=== PATIENT | female | born 1995 | race African-American/Black ===

== ENCOUNTER 2021-01-23 19:53 | Emergency (ER) | payer MEDICAID, OTHER ==
[~2021-01-23] VITALS: Ht 167.6 cm; Wt 65.8 kg
[2021-01-23] MEDS ORDERED: ONDANSETRON ODT 4 MG TAB PO ONE (22:30)
[2021-01-23] MEDS ORDERED: MORPHINE SULFATE INJECTION 2 MG/ML SYRG IM ONE (22:30)
[2021-01-23] MEDS ORDERED: KETOROLAC TROMETH 30 MG/ML 1ML VIAL IM ONE (22:30)
[2021-01-24 00:35] VITALS: BP 134/87
== END 2021-01-24 01:26 | disposition home or self-care (01) ==
LOC: ER 19:58
DX: S82.832A Other fracture of upper and lower end of left fibula, initial encounter for closed fracture (principal); S82.302A Unspecified fracture of lower end of left tibia, initial encounter for closed fracture; W18.39XA Other fall on same level, initial encounter; Y93.89 Activity, other specified; Y92.89 Other specified places as the place of occurrence of the external cause; Y99.8 Other external cause status
CPT/HCPCS: 73590; 96372; 99284; J1885; J2270; Q0162

== ENCOUNTER → 2021-02-09 | Day surgery (SDC) | payer MEDICAID ==
[2021-02-08 11:48] LABS: Basophils # (auto) 0 10 ^3/uL (0-0.2); Hemoglobin 12.3 g/dL (12.2-16.2)
[2021-02-08 11:51] LABS: Basophils % (auto) 0.4 % (0.0-2.0); Eosinophils # (auto) 0.1 10 ^3/uL (0-0.8); Eosinophils % (auto) 0.6 % (0.0-7.0); Hematocrit 37.3 % (36.0-46.0); Lymphocytes # (auto) 1.7 10 ^3/uL (0.4-5.4); Lymphocytes % (auto) 17.1 % (10.0-50.0); Mean Corpuscular Hemoglobin 27.9 pg (28.0-32.0); Mean Corpuscular Volume 84.5 fL (80.0-100.0); Monocytes # (auto) 0.4 10 ^3/uL (0-1.3); Monocytes % (auto) 3.5 % (0.0-12.0); Neutrophils # (auto) 7.8 10 ^3/uL (1.6-8.6); Neutrophils % (auto) 78.4 % (37.0-80.0); Red Blood Cells 4.42 10^6/uL (4.0-5.20); Red Cell Distribution Width 14.5 % (11.8-14.3); White Blood Cell 9.9 10^3/uL (4.4-10.8)
[2021-02-08 12:20] LABS: Urine Bacteria FEW /hpf (None Seen); Urine Blood Negative /uL (Negative); Urine Hyaline Cast FEW /lpf (0 - 2); Urine Mucus FEW (None Seen); Urine Specific Gravity 1.022 (1.001-1.035); Urine WBC 20 /hpf (0 - 5)
[2021-02-08 12:55] LABS: Albumin 3.7 g/dL (3.4-5.0); Calcium 9.5 mg/dL (8.5-10.1)
[2021-02-08 12:58] LABS: BUN/Creatinine Ratio 16.9; Bilirubin, Total 0.3 mg/dL (0.2-1.0); Total Protein 7.5 g/dL (6.4-8.2)
[~2021-02-09] VITALS: Ht 167.6 cm; Wt 65.8 kg
[~2021-02-09] MED LIST: BUPIVACAINE W/ EPINEPH 0.25% INJ 50ML MDV ONE; DexAMETHasone SOD PHOS 10MG/1ML VIAL INJ ONE; EPINEPHrine HCL 1 MG/1 ML AMP ONE; LABETALOL HCL 5 MG/ML 4ML SYRINGE IV PRN; MEPERIDINE HCL (25 MG/ML) 1ML VIAL ONE; MIDAZOLAM HCL 2MG/2ML 2ml VIAL (1mg/ml) IV PRN; MIDAZOLAM HCL 2MG/2ML 2ml VIAL (1mg/ml) ONE; MORPHINE SULFATE INJECTION 2 MG/ML SYRG IV PRN; MORPHINE SULFATE INJECTION 2 MG/ML SYRG ONE; ONDANSETRON HCL 4 MG/2 ML VIAL IV PRN; PROPOFOL 10 MG/ML 20 ML IV ONE; TRANEXAMIC ACID 20 ML ONE; ceFAZolin 1GM VL ONE; ceFAZolin 1GM/50ML 100 ML IV ONE; ePHEDrine SULFATE 50 MG/ML AMP IV PRN; fentaNYL CITRATE 100 MCG/2 ML VL ONE
[2021-02-09] MEDS: HYDROmorphone HCL 2 MG/ML VL IV PRN ×4 (15:17→15:48)
[2021-02-09 16:20] VITALS: BP 120/77
== END | disposition home or self-care (01) ==
LOC: SUR 09:53
PROVIDERS: ATTEND Orthopaedic Surgery Sports Medicine
DX: S82.402A Unspecified fracture of shaft of left fibula, initial encounter for closed fracture (principal); S82.202A Unspecified fracture of shaft of left tibia, initial encounter for closed fracture; Z20.822 Contact with and (suspected) exposure to COVID-19; X58.XXXA Exposure to other specified factors, initial encounter; Y93.89 Activity, other specified; Y92.89 Other specified places as the place of occurrence of the external cause; Y99.8 Other external cause status
CPT/HCPCS: 27759; 36415; 73590; 76000; 80053; 81001; 84702; 85025; C1713; C1769; J0690; J1100; J1170; J2175; J2250; J2270; J2704; J3010; U0003; J0171